=== PATIENT | female | born 1995 | race Caucasian/White ===

== ENCOUNTER 2021-07-22 12:43 | Emergency (ER) | payer MEDICAID ==
[~2021-07-22] VITALS: Ht 160 cm; Wt 56.8 kg
[2021-07-22] MEDS ORDERED: IV NORMAL SALINE 1000ML BAG 1,000 ML IV ONE (13:30)
[2021-07-22] MEDS ORDERED: ACETAMINOPHEN 500 MG TABLET PO ONE (13:30)
[2021-07-22 13:46] LABS: CALCIUM 9.4 mg/dL (8.5-10.1); CREATININE 0.7 mg/dL (0.6-1.0); POTASSIUM 4.3 mmol/L (3.5-5.1)
[2021-07-22 13:52] LABS: ALBUMIN 4.4 g/dL (3.4-5.0); ALBUMIN/GLOBULIN RATIO 1.3 (1.0-1.7); BASO % 0 % (0-3); EOS % 1 % (0-3); HEMATOCRIT 39.2 % (36.0-47.0); HEMOGLOBIN 13.2 g/dL (12.0-15.5); LYMPH % 15 % (24-48); MEAN CORPUSCULAR HEMOGLOBIN 32 pg (25-35); MEAN CORPUSCULAR HGB CONC 34 g/dL (31-37); MEAN CORPUSCULAR VOLUME 94 fL (79-100); MONO # 0.4 x10^3/uL (0.0-1.1); MONO % 7 % (0-9); NEUT # 5.1 x10^3/uL (1.8-7.7); NEUT % 78 % (31-73); PLATELET COUNT 312 x10^3/uL (140-400); RED BLOOD COUNT 4.16 x10^6/uL (3.50-5.40); TOTAL BILIRUBIN 0.7 mg/dL (0.2-1.0); TOTAL PROTEIN 7.8 g/dL (6.4-8.2); WHITE BLOOD COUNT 6.5 x10^3/uL (4.0-11.0)
--- NOTE | 2021-07-22 14:00 | RAD ---
XR CHEST 1V CLINICAL INDICATIONS: Reason: seizure / Spl. Instructions: / History: COMPARISON: None available Findings: No acute lung infiltrate or pleural effusion or pulmonary edema or lung mass or pneumothora x is seen. The heart size, pulmonary vasculature, mediastinum and both mohinder are unremarkable. No obv ious rib deformity is seen. Shoulder girdle appears intact on both sides. IMPRESSION: No acute radiographic abnormality is seen. Electronically signed by: Kyler Krishnan MD (07/22/2021 1:58 PM) [id number]
[2021-07-22 14:04] LABS: BARBITURATES NEG (NEG); BENZODIAZEPINES POS (NEG); CANNABINOIDS POS (NEG); COCAINE NEG (NEG); METHADONE NEG (NEG); OPIATES NEG (NEG); PHENCYCLIDINE NEG (NEG)
[2021-07-22 14:11] VITALS: BP 112/61
[2021-07-22 14:11] LABS: HYALINE CASTS, URINE FEW /HPF
[2021-07-22 14:12] LABS: BACTERIA,URINE MODERATE /HPF (0-FEW); RBC,URINE >40 /HPF (0-2)
--- NOTE | 2021-07-22 14:19 | RAD ---
CT brain without contrast. HISTORY: Seizure CT scan of the brain was done without contrast. There is mild mucosal thickening in the right maxilla ry sinus. Remaining sinuses are clear. There is no intracranial hemorrhage or subdural hematoma. Ther e is no mass effect or shift of the midline. Ventricles are normal in size. An acute CVA is not ident ified. IMPRESSION: 1. No intracranial hemorrhage or acute finding noted. PQRS Compliance Statement: One or more of the following individualized dose reduction techniques were utilized for this examinat ion: 1. Automated exposure control 2. Adjustment of the mA and/or kV according to patient size 3. Use of iterative reconstruction technique Electronically signed by: Calvin Noble MD (07/22/2021 2:17 PM) [id number]
[2021-07-22 14:41] LABS: AMPHETAMINE/METHAMPHETAMINE NEG (NEG)
[2021-07-22] MEDS ORDERED: ONDANSETRON PF 4 MG/2 ML VIAL. IVP ONE (15:00)
[2021-07-22] MEDS ORDERED: LEVE500T56 PO (15:14)
--- NOTE | 2021-07-22 15:14 | PHYS DOC ---
Past Medical History Past Surgical History: No Surgical History Smoking Status: Never Smoker Alcohol Use: None Adult General Chief Complaint Chief Complaint: SEIZURE HPI HPI The patient is a 26-year-old female who is otherwise healthy. She presents for evaluation of an apparent witnessed brief generalized seizure occurring about an hour prior to arrival at home. Patient awoke feeling a little nauseated after a night of drinking alcohol. She was sitting on the couch with her significant other when he noticed that she suddenly became unresponsive and had convulsive shaking of arms and legs. This lasted for between 30 seconds and a minute, after which she was postictal and confused. EMS were called out and checked on her; vital signs and blood glucose were appropriate. She was offered but declined EMS transport. Significant other then drove her here for evaluation. Upon initial evaluation here in the emergency department patient is alert, pleasantly and appropriately interactive and in no acute distress with appropriate vital signs. Blood glucose is appropriate. Patient denies fevers, nausea or vomiting, upper respiratory congestion/rhinorrhea, cough, headache, focal or lateralizing weakness, numbness or tingling, neck stiffness/pain/meningismus, vision changes, shortness of breath or chest pain of any kind, abdominal pain of any kind, flank pain, midline back pain, dysuria, hematuria, polyuria or oliguria, changes in bowel habits, pain or swelling to arms or legs. Patient tells me that she began taking Wellbutrin that was not prescribed to her, but was provided by a family member who had some old pills left over, to treat presumptive depression. She has been taking Wellbutrin for a couple of months and discontinued the medication a couple of days ago cold turkey because she ran out. Review of Systems Review of Systems A 12 point review of systems was completed and was negative except where noted in HPI above. Current Medications Current Medications Current Medications Medications (Trade) Dose Ordered Sig/Annika Start Time Stop Time Status Last Admin Dose Admin Acetaminophen (Tylenol) 1,000 mg 1X ONCE 07/22/21 13:30 07/22/21 13:31 DC 07/22/21 13:46 1,000 MG Ondansetron HCl (Zofran) 4 mg 1X ONCE 07/22/21 15:00 07/22/21 15:02 DC 07/22/21 15:00 4 MG Sodium Chloride 1,000 ml @ 1,000 mls/hr 1X ONCE 07/22/21 13:30 07/22/21 14:29 DC 07/22/21 13:41 1,000 MLS/HR Allergies Allergies Allergies Coded Allergies Type Severity Reaction Last Updated Verified No Known Drug Allergies 07/22/21 No Physical Exam Physical Exam 26-year-old female appearing nontoxic and in no acute distress. Head is normocephalic and atraumatic. Neck is supple and nontender. Oropharynx is moist. Lungs are clear to auscultation at all stations. There is a normal S1 and S2 without rubs or gallops and capillary refill is appropriate, less than 2 seconds globally. Abdomen is soft, nontender and nondistended. Skin is warm and dry without cyanosis, clubbing or edema. Psychiatrically, the patient demonstrates appropriate mood and affect and is alert. Neurologically, cranial nerves II through XII are intact and there are no lateralizing deficit seen. Speech is normal. Language is normal. Coordination is normal. There is no dysmetria [id number] or [id number] bilaterally. Strength is 5-5 at all joints of bilateral upper and lower extremities. Sensation is intact light touch in bilateral upper and lower extremities. Patient ambulates with a narrow, steady, non-ataxic gait here in the emergency department and is alert and oriented x4. Current Patient Data Vital Signs Vital Signs Date Time Temp Pulse Resp B/P (MAP) Pulse Ox O2 Delivery O2 Flow Rate FiO2 07/22/21 14:11 74 16 97 07/22/21 12:45 98.4 115/63 (80) Room Air 98.4 Lab Values Laboratory Tests Test 07/22/21 13:00 07/22/21 13:10 07/22/21 13:16 White Blood Count 6.5 x10^3/uL (4.0-11.0) Red Blood Count 4.16 x10^6/uL (3.50-5.40) Hemoglobin 13.2 g/dL (12.0-15.5) Hematocrit 39.2 % (36.0-47.0) Mean Corpuscular Volume 94 fL (79-100) Mean Corpuscular Hemoglobin 32 pg (25-35) Mean Corpuscular Hemoglobin Concent 34 g/dL (31-37) Red Cell Distribution Width 14.0 % (11.5-14.5) Platelet Count 312 x10^3/uL (140-400) Neutrophils (%) (Auto) 78 % (31-73) H Lymphocytes (%) (Auto) 15 % (24-48) L Monocytes (%) (Auto) 7 % (0-9) Eosinophils (%) (Auto) 1 % (0-3) Basophils (%) (Auto) 0 % (0-3) Neutrophils # (Auto) 5.1 x10^3/uL (1.8-7.7) Lymphocytes # (Auto) 1.0 x10^3/uL (1.0-4.8) Monocytes # (Auto) 0.4 x10^3/uL (0.0-1.1) Eosinophils # (Auto) 0.0 x10^3/uL (0.0-0.7) Basophils # (Auto) 0.0 x10^3/uL (0.0-0.2) Sodium Level 139 mmol/L (136-145) Potassium Level 4.3 mmol/L (3.5-5.1) Chloride Level 102 mmol/L (98-107) Carbon Dioxide Level 24 mmol/L (21-32) Anion Gap 13 (6-14) Blood Urea Nitrogen 5 mg/dL (7-20) L Creatinine 0.7 mg/dL (0.6-1.0) Estimated GFR (Cockcroft-Gault) 102.0 BUN/Creatinine Ratio 7 (6-20) Glucose Level 95 mg/dL (70-99) Calcium Level 9.4 mg/dL (8.5-10.1) Total Bilirubin 0.7 mg/dL (0.2-1.0) Aspartate Amino Transferase (AST) 24 U/L (15-37) Alanine Aminotransferase (ALT) 25 U/L (14-59) Alkaline Phosphatase 95 U/L (46-116) Troponin I High Sensitivity < 4 ng/L (4-50) L Total Protein 7.8 g/dL (6.4-8.2) Albumin 4.4 g/dL (3.4-5.0) Albumin/Globulin Ratio 1.3 (1.0-1.7) Ethyl Alcohol Level < 10 mg/dL (0-10) Urine Collection Type Unknown Urine Color (Auto) Light orange Urine Turbidity Hazy Urine pH (Auto) 7.0 (<5.0-8.0) Urine Specific [place] 1.022 (1.000-1.030) Urine Protein (Auto) 70 mg/dL (Negative) Urine Glucose (Auto)(UA) Negative mg/dL (Negative) Urine Ketones (Auto) 20 mg/dL (Negative) Urine Blood (Auto) Large (Negative) Urine Nitrite Negative (Negative) Urine Bilirubin (Auto) Negative (Negative) Urine Urobilinogen (Auto) Normal mg/dL (Normal) Urine Leukocyte Esterase (Auto) Moderate (Negative) Urine RBC >40 /HPF (0-2) Urine WBC 5-10 /HPF (0-4) Urine Squamous Epithelial Cells Many /LPF Urine Bacteria Moderate /HPF (0-FEW) Urine Hyaline Casts Few /HPF Urine Mucus Marked /LPF Urine Opiates Screen Neg (NEG) Urine Methadone Screen Neg (NEG) Urine Barbiturates Neg (NEG) Urine Phencyclidine Screen Neg (NEG) Urine Amphetamine/Methamphetamine Neg (NEG) Urine Benzodiazepines Screen Pos (NEG) Urine Cocaine Screen Neg (NEG) Urine Cannabinoids Screen Pos (NEG) Urine Ethyl Alcohol Neg (NEG) POC Urine HCG, Qualitative Hcg negative (Negative) Laboratory Tests 07/22/21 13:00 Laboratory Tests 07/22/21 13:00 EKG EKG Sinus rhythm, rate 75, no acute ST elevation or depression, sinus arrhythmia, VT 144, QRS 76, QTc 431, EP interpretation. Nonischemic tracing, intervals appropriate. Radiology/Procedures Radiology/Procedures CT brain without contrast. HISTORY: Seizure CT scan of the brain was done without contrast. There is mild mucosal thickening in the right maxillary sinus. Remaining sinuses are clear. There is no intracranial hemorrhage or subdural hematoma. There is no mass effect or shift of the midline. Ventricles are normal in size. An acute CVA is not identified. IMPRESSION: 1. No intracranial hemorrhage or acute finding noted. PQRS Compliance Statement: One or more of the following individualized dose reduction techniques were utilized for this examination: 1. Automated exposure control 2. Adjustment of the mA and/or kV according to patient size 3. Use of iterative reconstruction technique Electronically signed by: Calvin Noble MD (07/22/2021 2:17 PM) [id number] DICTATED and SIGNED BY: CALVIN NOBLE MD DATE: 07/22/21 1415 XR CHEST 1V CLINICAL INDICATIONS: Reason: seizure / Spl. Instructions: / History: COMPARISON: None available Findings: No acute lung infiltrate or pleural effusion or pulmonary edema or lung mass or pneumothorax is seen. The heart size, pulmonary vasculature, mediastinum and both mohinder are unremarkable. No obvious rib deformity is seen. Shoulder girdle appears intact on both sides. IMPRESSION: No acute radiographic abnormality is seen. Electronically signed by: Enrico Krishnan MD (07/22/2021 1:58 PM) [id number] DICTATED and SIGNED BY: ENRICO KRISHNAN MD DATE: 07/22/21 1357 Course & Med Decision Making Course & Med Decision Making Labs and imaging unremarkable. Overall scenario raises concern for lowered seizure threshold following a night of heavy drinking in the setting of very recent Wellbutrin cessation. Patient resting comfortably in no acute distress on serial reassessments. Remains alert and oriented x4, no further seizure activity noted during her time here in the department. Patient is ambulatory w ith a narrow, steady, non-ataxic gait here in the emergency department. Repeat formal neurologic examination is nonfocal. Well-appearing and verbalizes desire to go home. Will discharge with twice daily low-dose Keppra and a referral for close follow-up with neurology in the office. Patient is counseled not to drive or to swim or bathe unaccompanied unless and until cleared by her neurologist to resume those activities. She understands that if she feels worse instead of better or develops other new symptoms of concern that she should return to the emergency department immediately for reevaluation. All questions are answered. Dragon Disclaimer Dragon Disclaimer This electronic medical record was generated, in whole or in part, using a voice recognition dictation system. Departure Departure Impression: Primary Impression: Other seizures Disposition: 01 HOME / SELF CARE / HOMELESS Condition: IMPROVED Referrals: ROBERT MICHAEL MD Patient Instructions: Seizure, Adult Additional Instructions: Follow-up very closely with Dr. Michael of neurology in the office in the next 1 to 2 weeks for a reevaluation of your symptoms and to discussion of next best steps in care. Because you have had a seizure, you may not drive or swim or take a bath unaccompanied until your neurologist clears you to return to those activities. Begin taking the Keppra antiseizure medicine twice a day as prescribed to prevent seizures. Drink plenty of fluids and get plenty of rest. Suggest you avoid alcohol as it can predispose you to seizures. Return to the emergency department right away for recurrent or worsening symptoms of any kind or with any other new symptoms of concern. Scripts Levetiracetam (KEPPRA) 500 Mg Tablet 1 TAB PO BID for 30 Days, #60 TAB 1 Refill Prov: ORLANDO CAIN MD 07/22/21 ORLANDO CAIN MD Jul 22, 2021 15:14
--- NOTE | 2021-07-23 00:35 | EKG ---
[facility] [address] [place] [address] Test Date: 2021-07-22 Test Time: 13:38:16 Pat Name: SAUD RASHID Department: Room: Gender: F A/C Tech: : 1995 Requested By: ORLANDO CAIN Order Number: [id number] Reading MD: Koko Bach Measurements Intervals [place] Rate: 75 P: 52 VT: 144 QRS: 48 QRSD: 76 T: 43 QT: 384 QTc: 431 Interpretive Statements SINUS RHYTHM Electronically Signed On 07-27-2021 14:03:30 CDT by Koko Bach
[2021-07-23] MEDS ORDERED: ALPR2TAB2 PO (04:26)
[2021-07-23] MEDS ORDERED: BUPR150T8 PO (04:26)
[2021-07-23] MEDS ORDERED: SERT-267 PO (14:02)
== END 2021-07-22 15:21 | disposition home or self-care (01) ==
LOC: ER 12:43
DX: G40.89 Other seizures (principal); R11.0 Nausea
CPT/HCPCS: 36415; 70450; 71045; 80053; 80307; 81001; 81025; 84484; 85025; 87086; 93005; 96361; 96374; 99285; G0480; J2405; J7030

== ENCOUNTER 2021-07-22 17:58 | Inpatient (IN) | payer MEDICAID ==
[~2021-07-22] VITALS: Ht 157.5 cm; Wt 62.5 kg
[~2021-07-22 17:58] MED LIST: LEVE500T56 PO
[2021-07-22] MEDS ORDERED: levETIRAcetam 1,000mg PREMIX 100 ML IV ONE (18:45)
[2021-07-22 19:16] LABS: BASO % 0 % (0-3); EOS % 0 % (0-3); HEMATOCRIT 35.3 % (36.0-47.0); LYMPH # 0.7 x10^3/uL (1.0-4.8); LYMPH % 7 % (24-48); MEAN CORPUSCULAR HEMOGLOBIN 32 pg (25-35); MEAN CORPUSCULAR HGB CONC 34 g/dL (31-37); MEAN CORPUSCULAR VOLUME 94 fL (79-100); MONO # 0.6 x10^3/uL (0.0-1.1); MONO % 6 % (0-9); NEUT # 8.6 x10^3/uL (1.8-7.7); NEUT % 87 % (31-73); PLATELET COUNT 295 x10^3/uL (140-400); RED BLOOD COUNT 3.75 x10^6/uL (3.50-5.40); WHITE BLOOD COUNT 9.9 x10^3/uL (4.0-11.0)
[2021-07-22 19:21] LABS: CALCIUM 8.8 mg/dL (8.5-10.1); CREATININE 0.7 mg/dL (0.6-1.0); POTASSIUM 4.1 mmol/L (3.5-5.1)
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
[2021-07-22] MEDS ORDERED: ACETAMINOPHEN 325 MG TABLET. PO PRN (20:15)
[2021-07-22] MEDS ORDERED: ONDANSETRON PF 4 MG/2 ML VIAL. IVP PRN (20:15)
[2021-07-22] MEDS ORDERED: oxyCODONE/APAP 5/325 1 TAB TABLET PO PRN (22:15)
--- NOTE | 2021-07-22 22:20 | PDOC1 ---
History and Physical Date of Admission Date of Admission DATE: 07/22/21 TIME: 22:14 Source Source: Chart review, Patient History of Present Illness History of Present Illness Ms. Simental is a 26 year old female returns to the ER after a second seizure today. was seen in ED earlier today, s/p small seizure, sent home with keppra, she had not filled, was going to dinner, was found down by her fiance, foaming at the mouth, purple face, shaking. Maybe 2 min. She complains of face pain, and has a small abrasion under her nose she has a 5 yo and a 6 mos old child and has post- depression, ongoing Past Medical History Cardiovascular: No pertinent hx Pulmonary: No pertinent hx Psych: Depression (post x2) Rheumatologic: No pertinent hx Infectious disease: No pertinent hx Renal/: No pertinent hx Endocrine: No pertinent hx Grav: 3 Para: 2 Past Surgical History Past Surgical History: No pertinent history Family History Family History: No Significant Social History Smoke: No ALCOHOL: heavy Drugs: None Current Problem List Problem List Problems Medical Problems: (1) Seizure Status: Acute Current Medications Current Medications Current Medications Levetiracetam 100 ml @ 400 mls/hr 1X ONCE IV Last administered on 07/22/21at 19:23; Start 07/22/21 at 18:45; Stop 07/22/21 at 19:00; Status DC Ondansetron HCl (Zofran) 4 mg PRN Q8HRS PRN IVP NAUSEA/VOMITING; Start 07/22/21 at 20:15; Stop 07/23/21 at 20:14 Acetaminophen (Tylenol) 650 mg PRN Q4HRS PRN PO FEVER > 100.3'F; Start 07/22/21 at 20:15; Stop 07/23/21 at 20:14 Active Scripts Active Keppra (Levetiracetam) 500 Mg Tablet 1 Tab PO BID 30 Days Allergies Allergies: Coded Allergies: No Known Drug Allergies (Unverified , 07/22/21) ROS General: No: Chills, Night Sweats, Fatigue, Malaise, Appetite, Other PSYCHOLOGICAL ROS: YES: Anxiety, Depression, Irritablity, Sleep disturbances; No: Behavioral Disorder, Concentration difficultie, Decreased libido, Disorientation, Hallucinations, Hostility, Memory difficulties, Mood Swings, Obsessive thoughts, Suicidal ideation, Other Eyes: No Blurry vision, No Decreased vision, No Double vision, No Dry eyes, No Excessive tearing, No Eye Pain, No Itchy Eyes, No Loss of vision, No Phot ophobia, No Scotomata, No Uses contacts, No Uses glasses, No Other HEENT: No: Heacaches, Visual Changes, Hearing change, Nasal congestion, Nasal discharge, Oral lesions, Sinus pain, Sore Throat, Epistaxis, Sneezing, Snoring, Tinnitus, Vertigo, Vocal changes, Other Respiratory: No: Cough, Hemoptysis, Orthopnea, Pleuritic Pain, Shortness of breath, SOB with excertion, Sputum Changes, Stridor, Tachypnea, Wheezing, Other Cardiovascular: No Chest Pain, No Palpitations, No Orthopnea, No Paroxysmal Noc. Dyspnea, No Edema, No Lt Headedness, No Other Gastrointestinal: No Nausea, No Vomiting, No Abdominal Pain, No Diarrhea, No Constipation, No Melena, No Hematochezia, No Other Genitourinary: No Dysuria, No Frequency, No Incontinence, No Hematuria, No Retention, No Discharge, No Urgency, No Pain, No Flank Pain, No Other, No , No , No , No , No , No , No Musculoskeletal: No Gait Disturbance, No Joint Pain, No Joint Stiffness, No Joint Swelling, No Muscle Pain, No Muscular Weakness, No Pain In:, No Swelling In:, No Other Neurological: No Behavorial Changes, No Bowel/Bladder ControlChng, No Confusion, No Dizziness, No Gait Disturbance, No Headaches, No Impaired Coord/balance, No Memory Loss, No Numbness/Tingling, No Seizures, No Speech Problems, No Tremors, No Visual Changes, No Weakness, No Other Skin: No Dry Skin, No Eczema, No Hair Changes, No Lumps, No Mole Changes, No Mottling, No Nail Changes, No Pruritus, No Rash, No Skin Lesion Changes, No Other, No Acne Physical Exam General: Alert, Oriented X3, No acute distress HEENT: PERRLA, EOMI, Other (facial abrasion under left nostril) Lungs: Clear to auscultation, Normal air movement Heart: no gallops, no murmurs Extremities: No clubbing, No cyanosis, No edema, Normal pulses Skin: No breakdown Neuro: Normal speech, Normal tone, Cranial nerves 3-12 NL, Other Psych/Mental Status: Mental status NL, Other (flat affect ) Vitals Vitals Vital Signs Date Time Temp Pulse Resp B/P (MAP) Pulse Ox O2 Delivery O2 Flow Rate FiO2 07/22/21 18:10 98.4 82 16 114/62 (79) 98 Room Air 98.4 Labs Labs Laboratory Tests Test 07/22/21 18:56 White Blood Count 9.9 x10^3/uL (4.0-11.0) Red Blood Count 3.75 x10^6/uL (3.50-5.40) Hemoglobin 12.0 g/dL (12.0-15.5) Hematocrit 35.3 % (36.0-47.0) Mean Corpuscular Volume 94 fL (79-100) Mean Corpuscular Hemoglobin 32 pg (25-35) Mean Corpuscular Hemoglobin Concent 34 g/dL (31-37) Red Cell Distribution Width 14.0 % (11.5-14.5) Platelet Count 295 x10^3/uL (140-400) Neutrophils (%) (Auto) 87 % (31-73) Lymphocytes (%) (Auto) 7 % (24-48) Monocytes (%) (Auto) 6 % (0-9) Eosinophils (%) (Auto) 0 % (0-3) Basophils (%) (Auto) 0 % (0-3) Neutrophils # (Auto) 8.6 x10^3/uL (1.8-7.7) Lymphocytes # (Auto) 0.7 x10^3/uL (1.0-4.8) Monocytes # (Auto) 0.6 x10^3/uL (0.0-1.1) Eosinophils # (Auto) 0.0 x10^3/uL (0.0-0.7) Basophils # (Auto) 0.0 x10^3/uL (0.0-0.2) Sodium Level 141 mmol/L (136-145) Potassium Level 4.1 mmol/L (3.5-5.1) Chloride Level 104 mmol/L (98-107) Carbon Dioxide Level 25 mmol/L (21-32) Anion Gap 12 (6-14) Blood Urea Nitrogen 7 mg/dL (7-20) Creatinine 0.7 mg/dL (0.6-1.0) Estimated GFR (Cockcroft-Gault) 102.0 Glucose Level 89 mg/dL (70-99) Lactic Acid Level 1.4 mmol/L (0.4-2.0) Calcium Level 8.8 mg/dL (8.5-10.1) Laboratory Tests Test 07/22/21 18:56 White Blood Count 9.9 x10^3/uL (4.0-11.0) Red Blood Count 3.75 x10^6/uL (3.50-5.40) Hemoglobin 12.0 g/dL (12.0-15.5) Hematocrit 35.3 % (36.0-47.0) Mean Corpuscular Volume 94 fL (79-100) Mean Corpuscular Hemoglobin 32 pg (25-35) Mean Corpuscular Hemoglobin Concent 34 g/dL (31-37) Red Cell Distribution Width 14.0 % (11.5-14.5) Platelet Count 295 x10^3/uL (140-400) Neutrophils (%) (Auto) 87 % (31-73) Lymphocytes (%) (Auto) 7 % (24-48) Monocytes (%) (Auto) 6 % (0-9) Eosinophils (%) (Auto) 0 % (0-3) Basophils (%) (Auto) 0 % (0-3) Neutrophils # (Auto) 8.6 x10^3/uL (1.8-7.7) Lymphocytes # (Auto) 0.7 x10^3/uL (1.0-4.8) Monocytes # (Auto) 0.6 x10^3/uL (0.0-1.1) Eosinophils # (Auto) 0.0 x10^3/uL (0.0-0.7) Basophils # (Auto) 0.0 x10^3/uL (0.0-0.2) Sodium Level 141 mmol/L (136-145) Potassium Level 4.1 mmol/L (3.5-5.1) Chloride Level 104 mmol/L (98-107) Carbon Dioxide Level 25 mmol/L (21-32) Anion Gap 12 (6-14) Blood Urea Nitrogen 7 mg/dL (7-20) Creatinine 0.7 mg/dL (0.6-1.0) Estimated GFR (Cockcroft-Gault) 102.0 Glucose Level 89 mg/dL (70-99) Lactic Acid Level 1.4 mmol/L (0.4-2.0) Calcium Level 8.8 mg/dL (8.5-10.1) VTE Prophylaxis Ordered VTE Prophylaxis Devices: No VTE Pharmacological Prophylaxi: Yes Assessment/Plan Assessment/Plan seizure, keppra given, will continue, maybe provoked has been taking Wellbutritin for post- depression, under direction of a family member that is an RN depression, consider zoloft, needs f/u alcohol abuse disorder 5-6 drinks every night, rec abstinence, discused, PAT team consult for these problems, thiamine and b vitamins and MVI ordered admit obs Justifications for Admission Other Justification HEAVENLY MAURICE MD Jul 22, 2021 22:20
[2021-07-22 22:51] VITALS: BP 105/73
[2021-07-22] MEDS ORDERED: THIAMINE INJ 100 MG in IV DEXTROSE 5% 50 ML IV ONE (23:00)
[2021-07-23 02:41] VITALS: BP 96/45
[2021-07-23] MEDS ORDERED: BUPR150T8 PO (04:26)
[2021-07-23] MEDS ORDERED: ALPR2TAB2 PO (04:26)
[2021-07-23 07:00] VITALS: BP 98/62
[2021-07-23 08:03] LABS: BASO % 0 % (0-3); EOS # 0.1 x10^3/uL (0.0-0.7); EOS % 2 % (0-3); HEMATOCRIT 35.9 % (36.0-47.0); HEMOGLOBIN 12.2 g/dL (12.0-15.5); LYMPH # 1.1 x10^3/uL (1.0-4.8); LYMPH % 22 % (24-48); MEAN CORPUSCULAR HEMOGLOBIN 32 pg (25-35); MEAN CORPUSCULAR HGB CONC 34 g/dL (31-37); MEAN CORPUSCULAR VOLUME 95 fL (79-100); MONO # 0.4 x10^3/uL (0.0-1.1); MONO % 8 % (0-9); NEUT # 3.3 x10^3/uL (1.8-7.7); NEUT % 68 % (31-73); PLATELET COUNT 274 x10^3/uL (140-400); RED BLOOD COUNT 3.79 x10^6/uL (3.50-5.40); RED CELL DISTRIBUTION WIDTH 13.9 % (11.5-14.5); WHITE BLOOD COUNT 4.9 x10^3/uL (4.0-11.0)
[2021-07-23 08:39] LABS: ALBUMIN 3.5 g/dL (3.4-5.0); CALCIUM 8.4 mg/dL (8.5-10.1); CREATININE 0.6 mg/dL (0.6-1.0); GFR 121.8; POTASSIUM 3.5 mmol/L (3.5-5.1); TOTAL BILIRUBIN 0.8 mg/dL (0.2-1.0); TOTAL PROTEIN 7.1 g/dL (6.4-8.2)
[2021-07-23] MEDS ORDERED: FOLIC/VIT B COMP W-C (RENAL) TABLET. PO SCH (09:00)
[2021-07-23] MEDS ORDERED: SERTRALINE 50 MG TABLET. PO SCH (09:00)
[2021-07-23] MEDS ORDERED: levETIRAcetam 500 MG TABLET PO SCH (09:00)
--- NOTE | 2021-07-23 09:56 | PDOC2 ---
NEUROLOGY CONSULT Date of Service DOS: DATE: 07/23/21 TIME: 09:49 Reason for Consult Reason for Consult: Seizures Referring Physician Referring Physician: Dr. Vu Source Source: Chart review, Patient History of Present Illness History of Present Illness The patient is a 26-year-old right-handed female who had a seizure yesterday morning, came to the emergency department and had a negative CT. She was sent out on levetiracetam but then returned yesterday afternoon with a second seizure,and she had not filled the prescription yet. Her fianc described generalized convulsion with foaming at the mouth, lasting about 2 minutes each time. She has been on bupropion given to her by a family member for depression. Patient is also been using alcohol and marijuana. She is under stress. She was started on levetiracetam and has had no further seizures. There is no prior history of seizure, stroke, head injury, or family history of seizure. She denies any other neurological issues. Past Medical History Psych: Anxiety, Depression Past Surgical History Past Surgical History: No pertinent history Family History Family History: No pertinent hx Social History Social History Has a fianc, alcohol and marijuana as described above. Vapes tobacco Current Medications Current Medications Current Medications Levetiracetam 100 ml @ 400 mls/hr 1X ONCE IV Last administered on 07/22/21at 19:23; Start 07/22/21 at 18:45; Stop 07/22/21 at 19:00; Status DC Ondansetron HCl (Zofran) 4 mg PRN Q8HRS PRN IVP NAUSEA/VOMITING; Start 07/22/21 at 20:15; Stop 07/23/21 at 20:14 Acetaminophen (Tylenol) 650 mg PRN Q4HRS PRN PO FEVER > 100.3'F; Start 07/22/21 at 20:15; Stop 07/23/21 at 20:14 Levetiracetam (Keppra) 500 mg BID PO Last administered on 07/23/21at 09:17; Start 07/23/21 at 09:00 Thiamine HCl 100 mg/Dextrose 51 ml @ 102 mls/hr 1X ONCE IV Last administered on 07/22/21at 22:59; Start 07/22/21 at 23:00; Stop 07/22/21 at 23:29; Status DC Vitamin B Complex/ Vitamin C (An-Carmen) 1 tab DAILY PO Last administered on 07/23/21at 09:17; Start 07/23/21 at 09:00 Multivitamins (Thera M Plus) 1 tab DAILY PO ; Start 07/27/21 at 09:00 Lorazepam (Ativan Inj) 2 mg PRN Q1HR PRN IV For CIWA 8-14; Start 07/22/21 at 22:15 Lorazepam (Ativan Inj) 4 mg PRN Q1HR PRN IV For CIWA 15 or greater; Start 07/22/21 at 22:15 Oxycodone/ Acetaminophen (Percocet 5/325) 1 tab PRN Q6HRS PRN PO SEVERE PAIN 7- 10 Last administered on 07/22/21at 22:59; Start 07/22/21 at 22:15 Active Scripts Active Keppra (Levetiracetam) 500 Mg Tablet 1 Tab PO BID 30 Days Reported Wellbutrin Sr (Bupropion Hcl) 150 Mg Tablet.er 1 Tab PO BID Xanax (Alprazolam) 2 Mg Tablet 2 Mg PO PRN PRN Allergies Allergies: Coded Allergies: No Known Drug Allergies (Unverified , 07/22/21) ROS Review of System Negative for fever, chills, weight loss, shortness of breath, chest pain, indigestion, hematochezia, melena, and dysuria. Full 14-point review of systems is negative. Physical Exam Physical Examination General: Well-developed, well-nourished white female in no acute distress HEENT: Normocephalic andatraumatic. Temporal arteriespulsatile and nontender. Neck: Supple without bruit, no meningismus Musculoskeletal: Stability:see neurologic. Gait exam:see neurologic. Tone:see neurologic.Strength:see neurologic. Neurological: Mental Status:intact, orientation, memory, attention span/concentration, language, fund of knowledge normal. Cranial Nerves:Pupils equal and reactive to light, extraocular movements areintact, visual bryant are full to confrontation. Facial sensation is normal. There is no facial asymmetry. Vestibulo-ocular reflex is intact. Palate elevates and tongue protrudes in midline. All other cranial related problems are negative except as mentioned before.Reflexes:2+ and symmetric with flexor plantar responses. Motor:5/5 strength with normal tone and bulk. Coordination:Finger-nose finger and [id number] testing are normal. Rapid alternating movements and fine finger movements are intact. Gait:Normal, including tandem. Sensory:Normal pinprick, vibration, light touch, proprioception. Vitals VITALS Vital Signs Date Time Temp Pulse Resp B/P (MAP) Pulse Ox O2 Delivery O2 Flow Rate FiO2 07/23/21 07:00 97.8 65 98/62 (74) 97 Room Air 97.8 07/23/21 02:41 17 Labs Labs Laboratory Tests Test 07/22/21 18:56 07/23/21 07:00 White Blood Count 9.9 x10^3/uL (4.0-11.0) 4.9 x10^3/uL (4.0-11.0) Red Blood Count 3.75 x10^6/uL (3.50-5.40) 3.79 x10^6/uL (3.50-5.40) Hemoglobin 12.0 g/dL (12.0-15.5) 12.2 g/dL (12.0-15.5) Hematocrit 35.3 % (36.0-47.0) 35.9 % (36.0-47.0) Mean Corpuscular Volume 94 fL (79-100) 95 fL (79-100) Mean Corpuscular Hemoglobin 32 pg (25-35) 32 pg (25-35) Mean Corpuscular Hemoglobin Concent 34 g/dL (31-37) 34 g/dL (31-37) Red Cell Distribution Width 14.0 % (11.5-14.5) 13.9 % (11.5-14.5) Platelet Count 295 x10^3/uL (140-400) 274 x10^3/uL (140-400) Neutrophils (%) (Auto) 87 % (31-73) 68 % (31-73) Lymphocytes (%) (Auto) 7 % (24-48) 22 % (24-48) Monocytes (%) (Auto) 6 % (0-9) 8 % (0-9) Eosinophils (%) (Auto) 0 % (0-3) 2 % (0-3) Basophils (%) (Auto) 0 % (0-3) 0 % (0-3) Neutrophils # (Auto) 8.6 x10^3/uL (1.8-7.7) 3.3 x10^3/uL (1.8-7.7) Lymphocytes # (Auto) 0.7 x10^3/uL (1.0-4.8) 1.1 x10^3/uL (1.0-4.8) Monocytes # (Auto) 0.6 x10^3/uL (0.0-1.1) 0.4 x10^3/uL (0.0-1.1) Eosinophils # (Auto) 0.0 x10^3/uL (0.0-0.7) 0.1 x10^3/uL (0.0-0.7) Basophils # (Auto) 0.0 x10^3/uL (0.0-0.2) 0.0 x10^3/uL (0.0-0.2) Sodium Level 141 mmol/L (136-145) 141 mmol/L (136-145) Potassium Level 4.1 mmol/L (3.5-5.1) 3.5 mmol/L (3.5-5.1) Chloride Level 104 mmol/L (98-107) 105 mmol/L (98-107) Carbon Dioxide Level 25 mmol/L (21-32) 26 mmol/L (21-32) Anion Gap 12 (6-14) 10 (6-14) Blood Urea Nitrogen 7 mg/dL (7-20) 5 mg/dL (7-20) Creatinine 0.7 mg/dL (0.6-1.0) 0.6 mg/dL (0.6-1.0) Estimated GFR (Cockcroft-Gault) 102.0 121.8 Glucose Level 89 mg/dL (70-99) 83 mg/dL (70-99) Lactic Acid Level 1.4 mmol/L (0.4-2.0) Calcium Level 8.8 mg/dL (8.5-10.1) 8.4 mg/dL (8.5-10.1) BUN/Creatinine Ratio 8 (6-20) Total Bilirubin 0.8 mg/dL (0.2-1.0) Aspartate Amino Transf (AST/SGOT) 25 U/L (15-37) Alanine Aminotransferase (ALT/SGPT) 23 U/L (14-59) Alkaline Phosphatase 82 U/L (46-116) Total Protein 7.1 g/dL (6.4-8.2) Albumin 3.5 g/dL (3.4-5.0) Albumin/Globulin Ratio 1.0 (1.0-1.7) Laboratory Tests Test 07/22/21 18:56 07/23/21 07:00 White Blood Count 9.9 x10^3/uL (4.0-11.0) 4.9 x10^3/uL (4.0-11.0) Red Blood Count 3.75 x10^6/uL (3.50-5.40) 3.79 x10^6/uL (3.50-5.40) Hemoglobin 12.0 g/dL (12.0-15.5) 12.2 g/dL (12.0-15.5) Hematocrit 35.3 % (36.0-47.0) 35.9 % (36.0-47.0) Mean Corpuscular Volume 94 fL (79-100) 95 fL (79-100) Mean Corpuscular Hemoglobin 32 pg (25-35) 32 pg (25-35) Mean Corpuscular Hemoglobin Concent 34 g/dL (31-37) 34 g/dL (31-37) Red Cell Distribution Width 14.0 % (11.5-14.5) 13.9 % (11.5-14.5) Platelet Count 295 x10^3/uL (140-400) 274 x10^3/uL (140-400) Neutrophils (%) (Auto) 87 % (31-73) 68 % (31-73) Lymphocytes (%) (Auto) 7 % (24-48) 22 % (24-48) Monocytes (%) (Auto) 6 % (0-9) 8 % (0-9) Eosinophils (%) (Auto) 0 % (0-3) 2 % (0-3) Basophils (%) (Auto) 0 % (0-3) 0 % (0-3) Neutrophils # (Auto) 8.6 x10^3/uL (1.8-7.7) 3.3 x10^3/uL (1.8-7.7) Lymphocytes # (Auto) 0.7 x10^3/uL (1.0-4.8) 1.1 x10^3/uL (1.0-4.8) Monocytes # (Auto) 0.6 x10^3/uL (0.0-1.1) 0.4 x10^3/uL (0.0-1.1) Eosinophils # (Auto) 0.0 x10^3/uL (0.0-0.7) 0.1 x10^3/uL (0.0-0.7) Basophils # (Auto) 0.0 x10^3/uL (0.0-0.2) 0.0 x10^3/uL (0.0-0.2) Sodium Level 141 mmol/L (136-145) 141 mmol/L (136-145) Potassium Level 4.1 mmol/L (3.5-5.1) 3.5 mmol/L (3.5-5.1) Chloride Level 104 mmol/L (98-107) 105 mmol/L (98-107) Carbon Dioxide Level 25 mmol/L (21-32) 26 mmol/L (21-32) Anion Gap 12 (6-14) 10 (6-14) Blood Urea Nitrogen 7 mg/dL (7-20) 5 mg/dL (7-20) Creatinine 0.7 mg/dL (0.6-1.0) 0.6 mg/dL (0.6-1.0) Estimated GFR (Cockcroft-Gault) 102.0 121.8 Glucose Level 89 mg/dL (70-99) 83 mg/dL (70-99) Lactic Acid Level 1.4 mmol/L (0.4-2.0) Calcium Level 8.8 mg/dL (8.5-10.1) 8.4 mg/dL (8.5-10.1) BUN/Creatinine Ratio 8 (6-20) Total Bilirubin 0.8 mg/dL (0.2-1.0) Aspartate Amino Transf (AST/SGOT) 25 U/L (15-37) Alanine Aminotransferase (ALT/SGPT) 23 U/L (14-59) Alkaline Phosphatase 82 U/L (46-116) Total Protein 7.1 g/dL (6.4-8.2) Albumin 3.5 g/dL (3.4-5.0) Albumin/Globulin Ratio 1.0 (1.0-1.7) Images Images CT brain without contrast. HISTORY: Seizure CT scan of the brain was done without contrast. There is mild mucosal thickening in the right maxillary sinus. Remaining sinuses are clear. There is no intracranial hemorrhage or subdural hematoma. There is no mass effect or shift of the midline. Ventricles are normal in size. An acute CVA is not identified. IMPRESSION: 1. No intracranial hemorrhage or acute finding noted. Assessment/Plan Assessment/Plan Impression: New onset of seizures, several provocations including bupropion, alcohol, cannabis, stress depression Recommendations: Continue levetiracetam at least 6 months MRI of the brain Electroencephalogram distance learning technician is not available, I will consider doing this as an outpatient Discussed seizure precautions including no driving until 6 months without a seizure and what to have family member do with a seizure Okay to discharge later today Follow-up with me or my nurse practitioner in 6-8 weeks. Thank you for letting me help with the patient's care. ROBERT MICHAEL MD Jul 23, 2021 09:56
--- NOTE | 2021-07-23 10:49 | NUR ---
SW following. Discussed with RN, pt from home, room air, regular diet. Neuro following - MRI today. PAT consulted. Possible discharge home today per physician. SW will continue to follow.
[2021-07-23 11:00] VITALS: BP 97/65
[2021-07-23 11:53] LABS: BACTERIA,URINE FEW /HPF (0-FEW)
[2021-07-23] MEDS ORDERED: SERT-267 PO (14:02)
--- NOTE | 2021-07-23 14:03 | DISCH ---
DISCHARGE INSTRUCTIONS Condition on Discharge Condition on Discharge: Stable Activity After Discharge Activity Instructions for Disc: Activity as tolerated Lifting Instructions after Dis: No heavy lifting Exercise Instruction after Dis: Walk 30 min, 3 x per week Driving Instructions after Dis: No driving for 6 months Weight Bearing Status after Di: As tolerated Follow-Up Follow up with: Neurology as scheduled or as needed Follow Up With: PCP within 2 weeks of discharge ISELA VARGAS MD Jul 23, 2021 14:03
[2021-07-23 15:00] VITALS: BP 95/64
--- NOTE | 2021-07-23 15:21 | RAD ---
MRI BRAIN WO Date: 07/23/2021 1:30 PM Indication: new seizures Comparison: CT head 07/22/2021. Technique: Multiplanar multisequence MRI of the brain was performed without intravenous contrast usin g the standard protocol. Findings: No acute infarct. No acute or chronic hemorrhage. The ventricles are normal in size and configuration without hydrocephalus. Hippocampi are normal in signal and morphology. No weiss matter heterotopia or cortical dysplasia. The scalp and calvarium are normal. The pituitary and sella are normal. No Chiari malformation. The v isualized upper cervical spine is normal. The visualized orbits and globes are normal. Mild left maxillary sinus mucosal thickening. The mastoi d air cells are clear. Normal flow voids within the vertebral, basilar, and internal carotid arteries indicating patency. IMPRESSION: No acute infarct, hemorrhage, mass, or hydrocephalus. Electronically signed by: Bradley Gonsalez MD (07/23/2021 3:19 PM) [id number]
--- NOTE | 2021-07-23 15:59 | NUR ---
DISCHARGE INSTRUCTIONS GIVEN, QUESTIONS AND CONCERNS ANSWERED, PATIENT VERBALIZED UNDERSTANDING OF DISCHARGE INFORMATION INCLUDING TAKING ALL MEDICATIONS INSTRUCTED AND FOLLOWING UP WITH YOUR PRIMARY PROVIDER IN 1-[address] SWANSON IN 6-8 WEEKS, SALINE LOCK REMOVED PER CONE RUNNER.
--- NOTE | 2021-07-23 16:18 | NUR ---
PATIENT LEAVES THE UNIT PER W/C, ALL PERSONAL BELONGINGS SENT, EMOTIONAL SUPPORT GIVEN, FOLLOW UP APPOINTMENTS ENCOURAGED.
--- NOTE | 2021-07-24 17:13 | PDOC3 ---
[facility]-Discharge Summary Date of Admission: Date of Admission: Jul 22, 2021 Date of Discharge: Date of Discharge: Jul 23, 2021 Discharge Diagnosis: Discharge Diagnosis: seizure, keppra given, will continue, maybe provoked post- depression, depression, consider zoloft, needs f/u alcohol abuse disorder 5-6 drinks every night, Consults: Consults: Neuro recs: Assessment/Plan Impression: New onset of seizures, several provocations including bupropion, alcohol, cannabis, stress depression Recommendations: Continue levetiracetam at least 6 months MRI of the brain Electroencephalogram poultry field service technician is not available, I will consider doing this as an outpatient Discussed seizure precautions including no driving until 6 months without a seizure and what to have family member do with a seizure Okay to discharge later today Follow-up with me or my nurse practitioner in 6-8 weeks. Hospital Course: Hospital Course: 26 year old female returns to the ER after a second seizure today. was seen in ED earlier today, s/p small seizure, sent home with kelissettera, she had not filled, was going to dinner, was found down by her fiance, foaming at the mouth, purple face, shaking. Maybe 2 min. She complains of face pain, and has a small abrasion under her nose she has a 5 yo and a 6 mos old child and has post- depression, ongoing Evaluated by neurology and continued on Keppra. MRI completed and negative for any acute findings. Disposition: Disposition/Orders: D/C to Home Activity: Activity: Resume previous activity Diet: Diet: Cardiac Medications: Home Meds Active Scripts Sertraline Hcl (SERTRALINE HCL) 50 Mg Tablet, 50 MG PO DAILY for depression for 30 Days, #30 TAB 2 Refills Prov:ISELA VARGAS MD 07/23/21 Levetiracetam (KEPPRA) 500 Mg Tablet, 1 TAB PO BID for 30 Days, #60 TAB 1 Refill Prov:ORLANDO CAIN MD 07/22/21 Discontinued Reported Medications Bupropion Hcl (WELLBUTRIN SR) 150 Mg Tablet.er, 1 TAB PO BID for depression, #60 TAB 5 Refills 07/23/21 Alprazolam (XANAX) 2 Mg Tablet, 2 MG PO PRN PRN for ANXIETY / AGITATION, TAB 0 Refills 07/23/21 Scheduled Levetiracetam (Keppra), 1 TAB PO BID Sertraline Hcl (Sertraline Hcl), 50 MG PO DAILY Discontinued Medications Alprazolam (Xanax), 2 MG PO PRN PRN for ANXIETY / AGITATION, (Reported) Bupropion Hcl (Wellbutrin Sr), 1 TAB PO BID, (Reported) Total Time: Total Time: Total time spent was 32 minutes in preparing scripts and discharge planning with SW and RN. Patient seen and examined on day of Discharge. Justicifation of Admission Dx: Justifications for Admission: Justification of Admission Dx: Yes Altered Mental Status: Altered Mental Status ISELA VARGAS MD Jul 24, 2021 17:13
[2021-07-27] MEDS ORDERED: MULTIVITAMIN with MINERAL TABLET. PO SCH (09:00)
== END 2021-07-23 16:15 | disposition home or self-care (01) | DRG 101 ==
LOC: ER 17:58 → ED HOLD 21:13 → 5 NORTH 21:42
PROVIDERS: ADMIT Internal Medicine; ATTEND Internal Medicine
DX: R56.9 Unspecified convulsions (principal); F10.10 Alcohol abuse, uncomplicated; F41.9 Anxiety disorder, unspecified; F32.A Depression, unspecified
CPT/HCPCS: 36415; 70551; 80048; 80053; 81001; 83605; 85025; 87086; 96374; J3411; J7060; 99285-25; G0378